=== PATIENT | female | born 1935 | race African-American/Black ===

== ENCOUNTER 2021-10-26 21:17 | Inpatient (IN) | payer OTHER ==
[~2021-10-26] VITALS: Ht 154.9 cm; Wt 56.7 kg
[2021-10-26] MEDS ORDERED: SODIUM CHLORIDE 0.9% 1,000 ML IV ONE (21:45)
[2021-10-26 23:01] LABS: CLARITY URINE TURBID (CLEAR); COLOR URINE DARK YELLOW (YELLOW); KETONES URINE TRACE (NEGATIVE); LEUKOCYTE ESTERASE URINE 3+ (NEGATIVE); NITRITE URINE NEGATIVE (NEGATIVE); OCCULT BLOOD URINE TRACE (NEGATIVE); PROTEIN URINE 2+ (NEGATIVE); SPECIFIC GRAVITY URINE 1.013 (1.005-1.030)
[2021-10-26] MEDS ORDERED: CEFTRIAXONE 1 G PREMIX 50 ML IV ONE (23:15)
[2021-10-27 00:40] LABS: HEMATOCRIT. 26.8 % (36.0-48.0); HEMOGLOBIN. 8.6 g/dL (12.0-16.0); MEAN CORPUSCULAR HEMOGLOBIN 32.2 pg (28.0-32.0); MEAN CORPUSCULAR VOLUME 100.7 fL (81.0-99.0); RED BLOOD CELL COUNT 2.66 mill/uL (4.2-5.4); RED CELL DISTRIBUTION WIDTH 18.6 % (11.6-14.6)
[2021-10-27 00:56] LABS: CHLORIDE 108 mEq/L (98-107); MEAN PLATELET VOLUME 9.3 fl (7.4-10.4); PLATELET 285 x1000/uL (130-400)
[2021-10-27 00:58] LABS: PLATELET ESTIMATE NORMAL
[2021-10-27] MEDS ORDERED: SODIUM CHLORIDE 0.9% 1,000 ML IV ONE (01:30)
[2021-10-27] MEDS: SODIUM CHLORIDE 0.45% 1,000 ML IV SCH (10:45)
[2021-10-27 17:17] VITALS: BP 168/76
[2021-10-27 20:00] VITALS: BP 176/74
[2021-10-27] MEDS: AMLODIPINE 10MG TABLET PO SCH (22:06)
[2021-10-27] MEDS ORDERED: CEFTRIAXONE 1,000 MG in DEXTROSE 5% WATER 50 ML IV SCH (23:00)
[2021-10-28] VITALS: BP 141/66
[2021-10-28 04:00] VITALS: BP 152/68
[2021-10-28 06:03] LABS: BASOPHILS % 0.8 % (0.0-2.0); EOSINOPHILS % 1.3 % (0.0-5.0); HEMATOCRIT. 28.7 % (36.0-48.0); HEMOGLOBIN. 9.6 g/dL (12.0-16.0); MEAN CORPUSCULAR HEMOGLOBIN 33.4 pg (28.0-32.0); MEAN CORPUSCULAR VOLUME 99.6 fL (81.0-99.0); MEAN PLATELET VOLUME 9.2 fl (7.4-10.4); MONOCYTES % 7.4 % (2.0-8.0); NEUTROPHILS % 67.5 % (40.0-76.0); PLATELET 335 x1000/uL (130-400); RED BLOOD CELL COUNT 2.88 mill/uL (4.2-5.4); RED CELL DISTRIBUTION WIDTH 18.9 % (11.6-14.6)
[2021-10-28 08:00] VITALS: BP 150/66
[2021-10-28] MEDS: AMLODIPINE 10MG TABLET PO SCH (08:14)
[2021-10-28] MEDS ORDERED: INFLUENZA VACCINE 05/PF 0.5 ML SYRINGE IM ONE (10:00)
[2021-10-28 11:57] VITALS: BP 145/68
[2021-10-28] MEDS ORDERED: CEPH500C2 MT (12:57)
[2021-10-28] MEDS: SODIUM CHLORIDE 0.45% 1,000 ML IV SCH (13:25)
[2021-10-28 15:06] VITALS: BP 140/64
[2021-10-28 16:00] VITALS: BP 142/74
== END 2021-10-28 20:05 | disposition home or self-care (01) | DRG 871 ==
LOC: ER 21:17 → 6WST 10-27 03:11 → SUPCPDRO 10-27 13:45 → ENRESERV 10-27 16:07 → 6WST 10-27 17:20
PROVIDERS: ADMIT Internal Medicine; ATTEND Internal Medicine
DX: A41.9 Sepsis, unspecified organism (principal); G93.41 Metabolic encephalopathy; N17.0 Acute kidney failure with tubular necrosis; R65.21 Severe sepsis with septic shock; E44.0 Moderate protein-calorie malnutrition; N39.0 Urinary tract infection, site not specified; D64.9 Anemia, unspecified; E87.8 Other disorders of electrolyte and fluid balance, not elsewhere classified; F03.90 Unspecified dementia, unspecified severity, without behavioral disturbance, psychotic disturbance, mood disturbance, and anxiety; Z20.822 Contact with and (suspected) exposure to COVID-19; I10 Essential (primary) hypertension; G90.8 Other disorders of autonomic nervous system; Z79.899 Other long term (current) drug therapy; Z68.23 Body mass index [BMI] 23.0-23.9, adult
CPT/HCPCS: 36415; 71045; 76770; 80048; 80053; 81003; 83605; 83880; 84484; 85025; 86850; 86900; 87077; 87186; 87426; 93005; 97162; 99285; C1893; J0696; J7030; J7060